=== PATIENT | female | born 1975 | race Caucasian/White ===

== ENCOUNTER 2017-12-17 10:57 | Outpatient (RCR) | payer BC ==
[2017-12-16 12:45] LABS: PLATELET COUNT, AUTOMATED 233 K/uL (150-450)
[2017-12-16 15:18] VITALS: BP 124/73
[~2017-12-17 10:57] MED LIST: ACE3 PO; ERGO500037 PO; FERR-1 PO; FERR28TA2 PO; HYDR-3140 PO; IBU800 PO; ONDA4TAB PO; OXYC-489 PO; OXYIR PO; PREN-67 PO; PRO25 PO; SENN25TA PO; ZOLP-350 PO
[2017-12-17 11:03] VITALS: BP 115/83
--- NOTE | 2017-12-18 04:40 | ONCOLOGY FOLLOW UP NOTE ---
EVENT DATE: December 17, 2017 REASON FOR FOLLOWUP Recurrent breast cancer, currently in remission; no active therapy. CHIEF COMPLAINT The patient feels well today. INTERIM HISTORY Jossie returns to clinic for a followup visit today. She reports that she has been feeling just fine since her last visit here. She has noticed no skin changes, and no lumps or bumps under the arms. She reports no new pain. Her appetite is good, and her weight has been stable. She has been staying active. She reports no changes in bowel or bladder habits. REVIEW OF SYSTEMS Otherwise negative, and all systems are reviewed. ONCOLOGY HISTORY 1. 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 pT2 pN1 cM0, with one of five sentinel lymph nodes positive for micrometastatic disease. a. April 2011, patient completes adjuvant TACHYCARDIA chemotherapy, six cycles. b. May 2011, patient initiates tamoxifen, and this was reportedly self- discontinued, as the patient felt that she was cured and did not require adjuvant endocrine therapy. c. November 2011, CT PET scan: Concerning for new abnormal left axillary lymph node. d. December 24, 2011: Patient undergoes needle biopsy of left axillary lymph node which reveals metastatic carcinoma, ER positive (90%), NC positive (27%), HER2/ barbara 1+. e. December 2011: Patient undergoes BRCA testing. This is negative for deleterious mutation. f. February 12, 2012: Patient undergoes left axillary lymph node dissection. Pathology reveals one node positive for metastatic carcinoma with extracellular mucin, with the greatest extent of metastatic tumor being 1.6 cm. Extracapsular extension was identified. g. January 2012: Patient undergoes hysterectomy, bilateral oophorectomy. Pathology reportedly reveals no malignancy. h. February 26, 2012: Bone mineral density study reveals osteopenia. i. March 20, 2012: Patient initiates chemotherapy with dose-dense AC; AC complete on May 06, 2012; May 22, 2012, patient initiates adjuvant Taxol with her fourth and final cycle being given on July 03, 2012. j. July 08, 2012 to August 20, 2012: Patient undergoes adjuvant radiation therapy. k. November 2012 to June 2014: Patient receives adjuvant Arimidex therapy. l. From April 2013 to December 2014: The patient is followed with CT PET scan , with the most recent CT PET in December of 2014 showing no evidence of hypermetabolic recurrence. The notes to this point indicate that the patient had stopped taking adjuvant Arimidex, due to side effects. m. Ongoing clinical followup with no signs or symptoms to suggest recurrence. n. January 02, 2017: Left breast ultrasound shows post surgical changes from left mastectomy with implant reconstruction. There is no pathologic appearing left axillary lymphadenopathy or abnormal soft tissue mass. PAST MEDICAL HISTORY 1. Breast cancer, as above. 2. Reported history of vitamin D deficiency. 3. Status post hysterectomy/BSO. FAMILY HISTORY There is a reported family history of Hodgkin's disease in her mother and diabetes mellitus in her grandmother. SOCIAL HISTORY Patient is and has three children. She is a primary montessori teacher. She is a nondrinker and nonsmoker. There is no history of illicit drug use. ALLERGIES No known drug allergies. CURRENT MEDICATIONS None. VITAL SIGNS Temperature is 96.8, blood pressure 115/83, heart rate 73, respirations 16, oxygen saturation is 95% on room air. Weight is 59.9 kg. PHYSICAL EXAMINATION GENERAL: Patient is alert and oriented x three, in no apparent distress sitting in the exam room chair. She is quite interactive and pleasant. She appears healthy. HEENT: Anicteric sclerae. NEUROLOGIC: Grossly nonfocal, and her gait is normal. SKIN: No concerning rash or lesion. EXTREMITIES: No edema, clubbing or cyanosis. LABORATORY DATA Laboratory studies are reviewed per the [facility] record. Her tumor markers remain normal. IMAGING None today. ASSESSMENT AND PLAN Recurrent estrogen-receptor/kmtnzxpdiooo-[id number] left breast invasive ductal carcinoma, no clinical evidence of recurrence. I had a good visit with Jossie today. She has done quite well since I saw her at this time last year. She reports no concerning symptoms, and she has no signs to suggest recurrence of breast cancer. We spent a good deal of time today reviewing her oncology history in itemized fashion, see above. The patient has had an abbreviated course of endocrine therapy, initially with tamoxifen very briefly, and then with an aromatase inhibitor. She remains off any type of current treatment. We spent time today discussing our surveillance strategy moving forward. She is three and a half years out from completion of treatment for her axillary recurrence. I have not strongly recommended that she continue with imaging studies, but she does understand that this is an option. She will keep us posted of any new or concerning symptoms. She does have tumor markers that are normal from today, but we discussed that there is no significant data to suggest that these are helpful in her particular situation. We will likely forego checking these in the future. I would be more than happy to see her again in a year's time. We will have her establish with a primary care provider as well. I will make a referral to Dr. Land here in [place]. [place]
== END 2018-01-10 09:11 | disposition home or self-care (01) ==
LOC: ONC 10:57
PROVIDERS: ATTEND Internal Medicine Medical Oncology
DX: Z85.3 Personal history of malignant neoplasm of breast (principal); Z92.21 Personal history of antineoplastic chemotherapy; Z92.3 Personal history of irradiation; E55.9 Vitamin D deficiency, unspecified
CPT/HCPCS: 36415; 82040; 82247; 82306; 82310; 82374; 82378; 82435; 82565; 82947; 84075; 84132; 84155; 84295; 84450; 84460; 84520; 85025; 86300; 99212

== ENCOUNTER → 2019-01-26 | Outpatient (CLI) | payer BC ==
--- NOTE | 2019-01-26 16:23 | RADIOLOGY IMAGING REPORT ---
FACILITY: [facility] PATIENT NAME: Jossie Johnson : 1975 MR: [id number] V: [id number] EXAM DATE: ORDERING PHYSICIAN: PORFIRIO KELLER TECHNOLOGIST: Location: [facility] [place] Patient: Jossie Johnson : 1975 Visit/Account:[id number] Date of Sevice: 01/26/2019 DEXA Scan Clinical history: Osteopenia, history of breast cancer, postmenopausal. Comparison: DEXA scan from 01/03/2016. LUMBAR SPINE: The bone mineral density (BMD) measured from L1-L4 correlates with a Z-score of -2.2 and a T-score of -2.4 which is osteopenia as defined by the World Health Organization. The corresponding risk of fra cture in the lumbar spine is 46 times increased compared with a young adult reference population. Th is value has decrease by 1.4 % since the prior study. More than 5% change is considered significant. HIP: Bone mineral density (BMD) measured in the LEFT total hip region correlates with a Z-score -1.5 and a T-score of -1.9 which is osteopenia as defined by the World Health Organization. The corresponding risk of fracture in the hip is 3-4 times increased compared to a young adult reference population. Th is value has decrease by 5.3 % since the prior study. More than 5% change is considered significant. T score left femoral neck -1.7 Bone mineral density (BMD) measured in the Femoral Neck region measures 0.797 g/cm?. IMPRESSION: 1. Lumbar spine: Osteopenia. There has been 1.4% decrease in the bone mineral density since the pre vious exam. 2. Left Total Hip: Osteopenia. There has been 5.3% decrease in the bone mineral density since the p revious exam. 3. Femoral Neck: Bone Mineral Density is 0.797 g/cm? The next DEXA scan of this patient should include the following sites: L1-L4 and the left hip. FRAX? WHO Fracture Risk Assessment Tool link: <http://www.shef.ac.uk/FRAX/tool.jsp?locationValue=9> PLEASE NOTE: 1) The World Health Organization defines low BMD as follows: T-score Normal > -1 Osteopenia < -1 and > -2.5 Osteoporosis < -2.5 without fractures Established osteoporosis < -2.5 with fractures 2) In general, you may wish to consider: Diagnosis Treatment Follow-up DEXA Normal BMD Prevention 2-3 years Osteopenia Prevention/therapy 1-2 years Osteoporosis Therapy Yearly 3) Fracture risk estimated from the T-score is more accurate for vertebral fractures (often spontane ous) than for hip fractures. Report Dictated By: Constance Mendoza MD at 01/26/2019 4:13 PM Report E-Signed By: Constance Mendoza MD at 01/26/2019 4:15 PM WSN:[id number]
== END ==
LOC: RAD 14:36
PROVIDERS: ATTEND Emergency Medicine
DX: M85.89 Other specified disorders of bone density and structure, multiple sites (principal)
CPT/HCPCS: 77080

== ENCOUNTER → 2019-01-26 | Outpatient (CLI) | payer BC ==
[2019-01-26 14:35] LABS: PLATELET COUNT, AUTOMATED 238 K/uL (150-450)
[2019-01-26 14:49] LABS: LDL CHOLESTEROL 102 mg/dl
== END ==
LOC: LAB 14:01
PROVIDERS: ATTEND Emergency Medicine
DX: M85.80 Other specified disorders of bone density and structure, unspecified site (principal)
CPT/HCPCS: 36415; 82040; 82247; 82306; 82310; 82374; 82435; 82465; 82565; 82947; 83718; 84075; 84132; 84155; 84295; 84443; 84450; 84460; 84478; 84520; 85025